=== PATIENT | male | born 1930 | race Caucasian/White ===

== ENCOUNTER → 2018-01-07 | Day surgery (SDC) | payer MEDICARE, OTHER ==
[2018-01-06 13:18] LABS: BASOPHILS # (AUTO) 0.1 (0.0-0.1); BASOPHILS % 0.7 % (0.0-1.0); EOSINOPHILS # (AUTO) 0.3 (0.0-0.4); HEMATOCRIT 41.5 % (38.2-49.6); HEMOGLOBIN 13.9 g/dL (14.0-18.0); LYMPHOCYTES # (AUTO) 1.4 (1.0-3.2); LYMPHOCYTES % 20.1 % (18.0-39.1); MEAN CORPUSCULAR HEMOGLOBIN 32.5 pg (28-32); MEAN CORPUSCULAR HGB CONC 33.5 g/dL (31-35); MONOCYTES # (AUTO) 0.5 (0.2-0.8); MONOCYTES % 7.1 % (4.4-11.3); NEUTROPHILS # (AUTO) 4.6 (2.1-6.9); NEUTROPHILS % 64.6 % (38.7-80.0); PLATELET COUNT 170 x10e3/uL (140-360); RED BLOOD COUNT 4.28 x10e6/uL (4.3-5.7); RED CELL DISTRIBUTION WIDTH 14.8 % (11.7-14.4)
[2018-01-06 13:40] LABS: ALBUMIN 3.5 g/dL (3.5-5.0); ALBUMIN/GLOBULIN RATIO 0.8 (0.8-2.0); ANION GAP 14.3 mmol/L (8-16); CALCIUM 9.3 mg/dL (8.4-10.2); CHOL/HDL RATIO 4.9 (3.9-4.7); CREATININE, SERUM 1.49 mg/dL (0.72-1.25); POTASSIUM 4.3 mmol/L (3.5-5.1)
[2018-01-06 16:55] LABS: NEUTROPHILS % (MANUAL) 64 % (40-74)
[2018-01-06 16:56] LABS: EOSINOPHILS % (MANUAL) 6 % (0-7); LYMPHOCYTES % (MANUAL) 20 % (19-48); MONOCYTES % (MANUAL) 3 % (3.4-9.0); PLATELET ESTIMATE ADEQUATE; PLATELET MORPHOLOGY COMMENT FEW GIANT; RBC MORPHOLOGY COMMENT NORMAL
[~2018-01-07] MED LIST: ACETAMINOPHEN325 M1 PO; ALPRAZOLAM 0.5 MG TAB ONE; ASPIRIN325 MG PO; CLONIDINE HCL0.1 MG PO; COLACE100 MG PO; DIPHENHYDRAMINE HCL 25 MG CAP ONE; FENTANYL CITRATE/PF 100MCG/2 ML INJ ONE; FLOMAX0.4 MG PO; GABAPENTIN300 MG PO; HEPARIN SOD/SOD CHLORIDE 2,000 ML ONE; HYDROMORPHONE 1MG/1ML INJ IV PRN; IOPAMIDOL 300MG/ML 100 ML INFUS..BTL IV ONE; ISOSORBIDE MONO30 MG PO; K DUR10 MEQ PO; LACTULOSE20 GM/30 M PO; LIDOCAINE HCL 2% LOCAL 20 ML VIAL ONE; LINZESS; METOPROLOL SUCC25 MG PO; MIDAZOLAM HCL 2 MG/2 ML VIAL ONE; MULTIVITAMINS1 EAC6 PO; NATURAL FIBER PO; NITROGLYCERIN0.4 MG SL; NORVASC5 MG PO; PROMETHAZINE HC25 M1 PO; REFRESH TEARS15 ML OP; SENNA LAX8.6 MG PO; SODIUM CHLORIDE 0.9% 1000ML 1,000 ML IV SCH; SODIUM CHLORIDE 0.9% 1000ML 1,000 ML ONE; TRAZODONE HCL50 MG PO; ULTRACET TABLE1 EACH PO; ULTRAM50 MG PO; ZANTAC150 MG PEG
[2018-01-07 10:43] VITALS: BP 147/63
--- NOTE | 2018-01-07 19:15 | Operative Report ---
DATE OF PROCEDURE: January 07, 2018 INDICATIONS: Coronary artery disease. PROCEDURES PERFORMED: 1. Left heart catheterization, selective coronary angiography. 2. Left ventriculography. 3. Selective cannulation of 1 arterial and 2 venous bypass conduits. COMPLICATIONS: None. RECOMMENDATIONS: Aggressive medical therapy. Access obtained in the right femoral artery. A 6-[place] sheath was placed. Diagnostic coronary angiogram revealed patent left main. Obtuse marginal branch is occluded. Left anterior descending artery is occluded. Right coronary artery is occluded. Left internal mammary artery bypass to left anterior descending artery is widely patent. Saphenous vein bypass graft to obtuse marginal branch is widely patent. The saphenous vein bypass graft to right posterior descending artery is widely patent. No intervention was deemed necessary. Sheath was removed under manual pressure. Patient was discharged home on same day. Job#: [id number]
== END | disposition home or self-care (01) ==
LOC: CATH LAB 11:31
PROVIDERS: ATTEND Internal Medicine Interventional Cardiology
DX: I25.799 Atherosclerosis of other coronary artery bypass graft(s) with unspecified angina pectoris (principal); I25.82 Chronic total occlusion of coronary artery; Z95.1 Presence of aortocoronary bypass graft; Z01.812 Encounter for preprocedural laboratory examination; Z79.82 Long term (current) use of aspirin; Z68.35 Body mass index [BMI] 35.0-35.9, adult; Z82.49 Family history of ischemic heart disease and other diseases of the circulatory system
CPT/HCPCS: 36415; 77002; 80053; 80061; 85025; 93459; C1725; C1769 ×2; J2001; J2250; J7030; Q9967; 36140; 93452